=== PATIENT | female | born 1980 | race Caucasian/White ===

== ENCOUNTER 2018-02-25 23:57 | Emergency (ER) | payer MEDICAID, SELFPAY ==
[2018-02-25 23:58] VITALS: BP 158/104; PULSE 126; RESP 18; TEMP 36.8; O2SAT 95; BMI 29.2
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
--- NOTE | 2018-02-26 03:39 | ED.RN ---
went into pt room. found gown in bed and no pt.
== END 2018-02-26 03:40 | disposition left against medical advice (07) ==
PROVIDERS: Emergency Provider Emergency Medicine; Family Provider Family Medicine; PCP Family Medicine
DX: S01.01XA Laceration without foreign body of scalp, initial encounter (principal); Y04.2XXA Assault by strike against or bumped into by another person, initial encounter; Y93.9 Activity, unspecified; Y92.89 Other specified places as the place of occurrence of the external cause; Y99.9 Unspecified external cause status
CPT/HCPCS: 99284